=== PATIENT | female | born 1975 | race Caucasian/White ===

== ENCOUNTER 2016-09-07 20:57 | Emergency (ER) | payer OTHER ==
[~2016-09-07] VITALS: Ht 154.9 cm; Wt 99.0 kg
[2016-09-07] MEDS ORDERED: IPRATROPIUM/ALBUTEROL 0.5-3(2.5)MG/3ML NEB HHN ONE (22:15)
[2016-09-07] MEDS ORDERED: PREDNISONE 20MG TABLET PO SCH (22:15)
[2016-09-07 22:30] VITALS: BP 126/75
== END 2016-09-07 23:15 | disposition home or self-care (01) ==
LOC: ER 20:57
DX: J45.901 Unspecified asthma with (acute) exacerbation (principal)
CPT/HCPCS: 81025; 94640; 99283; J7512; J7620

== ENCOUNTER 2017-03-14 02:09 | Emergency (ER) | payer MEDICAID, OTHER ==
[~2017-03-14] VITALS: Ht 154.9 cm; Wt 73.0 kg
[2017-03-14] MEDS ORDERED: METHYLPREDNISOLONE SOD SUCC 125 MG/2 ML VIAL IV STA (03:07)
[2017-03-14] MEDS ORDERED: IPRATROPIUM BROMIDE (0.02%) 0.5MG/2.5ML NEB HHN STA (03:07)
[2017-03-14] MEDS ORDERED: MAGNESIUM 2 G PREMIX 50 ML IV STA (03:07)
[2017-03-14] MEDS ORDERED: ALBUTEROL (0.083%) 2.5MG/3ML NEB HHN STA (03:07)
[2017-03-14] MEDS ORDERED: SODIUM CHLORIDE 0.9% 1,000 ML IV ONE (03:07)
[2017-03-14] MEDS ORDERED: CEFTRIAXONE 1 G PREMIX 50 ML IV ONE (03:15)
[2017-03-14] MEDS ORDERED: AZITHROMYCIN 500 MG in DEXT 5% WATER 250 ML IV ONE (03:15)
[2017-03-14 07:06] VITALS: BP 129/79
== END 2017-03-14 07:08 | disposition home or self-care (01) ==
LOC: ER 02:09
DX: J45.901 Unspecified asthma with (acute) exacerbation (principal); Z98.890 Other specified postprocedural states
CPT/HCPCS: 71010; 81025; 94640; 96365; 96367; 96375; 99285; J0456; J0696; J2930; J3475; J7030; J7611; Z7610; J7060

== ENCOUNTER 2017-07-06 05:31 | Emergency (ER) | payer OTHER ==
[~2017-07-06] VITALS: Ht 157.5 cm; Wt 82.0 kg
[2017-07-06 05:38] VITALS: BP 128/89
== END 2017-07-06 09:37 | disposition left against medical advice (07) ==
LOC: ER 05:31
DX: R06.02 Shortness of breath (principal); Z53.21 Procedure and treatment not carried out due to patient leaving prior to being seen by health care provider

== ENCOUNTER 2017-07-18 02:53 | Emergency (ER) | payer OTHER ==
[~2017-07-18] VITALS: Ht 154.9 cm; Wt 82.0 kg
[2017-07-18 03:40] VITALS: BP 147/100
[2017-07-18] MEDS ORDERED: IPRATROPIUM BROMIDE (0.02%) 0.5MG/2.5ML NEB HHN STA (03:52)
[2017-07-18] MEDS ORDERED: ALBUTEROL (0.083%) 2.5MG/3ML NEB HHN STA (03:52)
[2017-07-18] MEDS ORDERED: SODIUM CHLORIDE 0.9% 1,000 ML IV ONE (03:52)
[2017-07-18] MEDS ORDERED: METHYLPREDNISOLONE SOD SUCC 125 MG/2 ML VIAL IV STA (03:52)
[2017-07-18] MEDS ORDERED: AZITHROMYCIN 500 MG in DEXT 5% WATER 250 ML IV ONE (04:00)
[2017-07-18] MEDS ORDERED: NITROGLYCERIN OINT 1GM/INCH UDPKT TD ONE (04:00)
[2017-07-18] MEDS ORDERED: ASPIRIN 81MG TABLET PO ONE (04:00)
[2017-07-18] MEDS ORDERED: CEFTRIAXONE 1 G PREMIX 50 ML IV ONE (04:00)
[2017-07-18] MEDS ORDERED: MAGNESIUM 2 G PREMIX 50 ML IV ONE (04:00)
[2017-07-18 04:32] LABS: BG BASE EXCESS 1.7 mmol/L (-2.0-2.0); BG CARBOXYHEMOGLOBIN 0.1 % (0.5-1.5); BG DEOXYHEMOGLOBIN 2.5 % (0.0-5.0); BG FRACTION INSPIRED OXYGEN 21; BG HCO3 ACT 25.8 mmol/L (22.0-26.0); BG METHEMOGLOBIN 0.2 % (0.0-1.5); BG OXYGEN SATURATION 97.5 % (92.0-98.5); BG OXYHEMOGLOBIN 97.2 % (94.0-97.0); BG PCO2 38.6 mmHg (35.0-45.0); BG PH 7.443 (7.350-7.450); BG PO2 99.3 mmHg (75.0-100.0); BG SAMPLE SITE LEFT RADIAL; BG TOTAL HEMOGLOBIN 10.4 g/dL (12.0-18.0); BG VENT MODE ROOM AIR
[2017-07-18 05:15] LABS: HEMATOCRIT. 31.4 % (36.0-48.0); HEMOGLOBIN. 9.6 g/dL (12.0-16.0); MEAN CORPUSCULAR HEMOGLOBIN 21.5 pg (28.0-32.0); MEAN CORPUSCULAR VOLUME 69.9 fL (81.0-99.0); MEAN PLATELET VOLUME 6.7 fl (7.4-10.4); PLATELET 372 x1000/uL (130-400); RED BLOOD CELL COUNT 4.48 mill/uL (4.2-5.4); RED CELL DISTRIBUTION WIDTH 19.9 % (11.6-14.6)
[2017-07-18 05:21] LABS: INR 0.9; PROTHROMBIN TIME 9.6 sec (9.4-11.6)
[2017-07-18 05:31] LABS: CARBON DIOXIDE 26 mEq/L (21-32); CHLORIDE 104 mEq/L (98-107); ETHANOL BLOOD < 10 mg/dL; TROPONIN I < 0.02 ng/mL (0.00-0.04)
[2017-07-18 10:55] LABS: PLATELET ESTIMATE NORMAL
== END 2017-07-18 05:19 | disposition home or self-care (01) ==
LOC: ER 03:06
DX: J45.901 Unspecified asthma with (acute) exacerbation (principal); Z87.891 Personal history of nicotine dependence
CPT/HCPCS: 36415; 36600; 71045; 80053; 82375; 82805; 83605; 83690; 83880; 84484; 85025; 85610; 87040; 93005; 94640; 96365; 96375; 99285; G0482; J0456; J0696; J2930; J3475; J7030; J7611; Z7610; J7060

== ENCOUNTER 2018-11-13 05:40 | Emergency (ER) | payer OTHER ==
[~2018-11-13] VITALS: Ht 157.5 cm; Wt 73.0 kg
[2018-11-13] MEDS ORDERED: ALBUTEROL (0.083%) 2.5MG/3ML NEB HHN STA (09:06)
[2018-11-13] MEDS ORDERED: IPRATROPIUM BROMIDE (0.02%) 0.5MG/2.5ML NEB HHN STA (09:06)
[2018-11-13] MEDS ORDERED: PREDNISONE 20MG TABLET PO STA (09:06)
[2018-11-13 09:24] LABS: BASOPHILS % 0.9 % (0.0-2.0); EOSINOPHILS % 8.9 % (0.0-5.0); HEMATOCRIT. 30.1 % (36.0-48.0); HEMOGLOBIN. 9.5 g/dL (12.0-16.0); LYMPHOCYTES % 27.2 % (20.0-50.0); MEAN CORPUSCULAR HEMOGLOBIN 22.6 pg (28.0-32.0); MEAN CORPUSCULAR VOLUME 71.4 fL (81.0-99.0); MEAN PLATELET VOLUME 6.8 fl (7.4-10.4); MONOCYTES % 6.9 % (2.0-8.0); NEUTROPHILS % 56.1 % (40.0-76.0); PLATELET 313 x1000/uL (130-400); RED BLOOD CELL COUNT 4.22 mill/uL (4.2-5.4); RED CELL DISTRIBUTION WIDTH 17.7 % (11.6-14.6)
[2018-11-13 09:29] LABS: CHLORIDE 108 mEq/L (98-107)
[2018-11-13 09:34] LABS: *BARBITURATES SCREEN URINE NEGATIVE (NEGATIVE); *BENZODIAZEPINES SCREEN URINE NEGATIVE (NEGATIVE); *COCAINE SCREEN URINE NEGATIVE (NEGATIVE)
[2018-11-13 09:35] LABS: METHADONE URINE SCREEN NEGATIVE (NEGATIVE); OPIATES URINE SCREEN NEGATIVE (NEGATIVE)
[2018-11-13 09:37] LABS: CANNABINOID URINE SCREEN NEGATIVE (NEGATIVE)
[2018-11-13 09:38] LABS: HCG SCREEN NEGATIVE
[2018-11-13 09:39] LABS: PHENCYCLIDINE URINE SCREEN NEGATIVE (NEGATIVE)
[2018-11-13 09:42] LABS: *AMPHETAMINES SCREEN URINE PRESUMTIVE POSITIVE (NEGATIVE)
[2018-11-13 10:24] VITALS: BP 171/94
== END 2018-11-13 10:30 | disposition home or self-care (01) ==
LOC: ER 05:40
DX: J45.901 Unspecified asthma with (acute) exacerbation (principal); F15.10 Other stimulant abuse, uncomplicated; D50.9 Iron deficiency anemia, unspecified; R03.0 Elevated blood-pressure reading, without diagnosis of hypertension; F12.11 Cannabis abuse, in remission; Z87.891 Personal history of nicotine dependence
CPT/HCPCS: 36415; 71045; 80048; 80305; 81025; 83880; 84484; 84703; 85025; 85379; 93005; 94640; 99284; J7512; J7611

== ENCOUNTER 2019-01-18 09:07 | Emergency (ER) | payer OTHER ==
[~2019-01-18] VITALS: Ht 154.9 cm; Wt 74.0 kg
[2019-01-18] MEDS ORDERED: ALBU90AE IH (09:19)
[2019-01-18] MEDS ORDERED: IPRATROPIUM BROMIDE (0.02%) 0.5MG/2.5ML NEB HHN STA (09:22)
[2019-01-18] MEDS ORDERED: ALBUTEROL (0.083%) 2.5MG/3ML NEB HHN STA (09:22)
[2019-01-18] MEDS ORDERED: PREDNISONE 20MG TABLET PO STA (09:22)
[2019-01-18 10:54] VITALS: BP 142/90
== END 2019-01-18 10:55 | disposition home or self-care (01) ==
LOC: ER 09:07
DX: J45.901 Unspecified asthma with (acute) exacerbation (principal); F12.10 Cannabis abuse, uncomplicated; Z87.891 Personal history of nicotine dependence; Z98.890 Other specified postprocedural states
CPT/HCPCS: 94644; 99285; J7512; J7611; Z7610; 94640

== ENCOUNTER 2022-11-24 23:40 | Emergency (ER) | payer MEDICAID, OTHER ==
[~2022-11-24] VITALS: Ht 154.9 cm; Wt 78.6 kg
[~2022-11-24 23:40] MED LIST: ALBU90AE IH
[2022-11-25 00:57] LABS: BASOPHILS % 0.8 % (0.0-2.0); EOSINOPHILS % 5.5 % (0.0-5.0); HEMATOCRIT. 37.4 % (36.0-48.0); HEMOGLOBIN. 12.5 g/dL (12.0-16.0); LYMPHOCYTES % 39.1 % (20.0-50.0); MEAN CORPUSCULAR HEMOGLOBIN 28.4 pg (28.0-32.0); MEAN CORPUSCULAR VOLUME 85.4 fL (81.0-99.0); MEAN PLATELET VOLUME 7.2 fl (7.4-10.4); MONOCYTES % 5.1 % (2.0-8.0); NEUTROPHILS % 49.5 % (40.0-76.0); PLATELET 329 x1000/uL (130-400); RED BLOOD CELL COUNT 4.38 mill/uL (4.2-5.4); RED CELL DISTRIBUTION WIDTH 14.3 % (11.6-14.6)
[2022-11-25 00:58] LABS: CHLORIDE 108 mEq/L (98-107)
[2022-11-25 01:01] LABS: HCG SCREEN NEGATIVE
[2022-11-25 03:45] VITALS: BP 111/75
== END 2022-11-25 04:52 | disposition home or self-care (01) ==
LOC: ER 23:40
DX: R00.2 Palpitations (principal); R06.02 Shortness of breath; J45.909 Unspecified asthma, uncomplicated; F12.90 Cannabis use, unspecified, uncomplicated
CPT/HCPCS: 36415; 71045; 80053; 83880; 84484; 84703; 85025; 85379; 93005; 99285

== ENCOUNTER 2023-03-02 09:55 | Emergency (ER) | payer MEDICAID, OTHER ==
[~2023-03-02] VITALS: Ht 154.9 cm; Wt 72.6 kg
[2023-03-02 10:21] VITALS: O2SAT 99
[2023-03-02] MEDS ORDERED: METOCLOPRAMIDE HCL 10MG TABLET PO NR (11:00)
[2023-03-02] MEDS ORDERED: KETOROLAC 15MG/ML VIAL IV NR (11:00)
[2023-03-02] MEDS ORDERED: KETOROLAC 15MG/ML VIAL IM NR (11:30)
[2023-03-02] MEDS ORDERED: IBUP-2028 PO (11:55)
[2023-03-02] MEDS ORDERED: METO-293 PO (11:55)
[2023-03-02 12:42] VITALS: BP 132/84; PULSE 74; RESP 18; TEMP 98.2
== END 2023-03-02 12:43 | disposition home or self-care (01) ==
LOC: ER 10:25
DX: S00.83XA Contusion of other part of head, initial encounter (principal); F07.81 Postconcussional syndrome; W50.0XXA Accidental hit or strike by another person, initial encounter; Y93.89 Activity, other specified; Y92.89 Other specified places as the place of occurrence of the external cause; Y99.8 Other external cause status
CPT/HCPCS: 70450; 96372; 99285; J8597; J1885; Z7610

== ENCOUNTER 2024-02-08 13:21 | Emergency (ER) | payer MEDICAID, OTHER ==
[~2024-02-08] VITALS: Ht 154.9 cm; Wt 79.0 kg
[~2024-02-08 13:21] MED LIST changes: +IBUP-2028 PO; +METO-293 PO
[2024-02-08 13:45] VITALS: O2SAT 100
[2024-02-08 15:07] VITALS: BP 123/87; PULSE 84; RESP 20; TEMP 98.2
== END 2024-02-08 15:11 | disposition home or self-care (01) ==
LOC: ER 13:33
DX: L02.211 Cutaneous abscess of abdominal wall (principal); J45.909 Unspecified asthma, uncomplicated; F12.10 Cannabis abuse, uncomplicated; Z98.890 Other specified postprocedural states
CPT/HCPCS: 10060; 99284; Z7610 ×4

== ENCOUNTER 2024-02-10 13:36 | Emergency (ER) | payer MEDICAID, OTHER ==
[~2024-02-10] VITALS: Ht 154.9 cm; Wt 78.9 kg
[2024-02-10 13:40] VITALS: O2SAT 95
[2024-02-10 14:04] VITALS: BP 133/81; PULSE 88; RESP 18; TEMP 98.6; O2SAT 95
== END 2024-02-10 15:09 | disposition home or self-care (01) ==
LOC: ER 13:36
DX: L02.211 Cutaneous abscess of abdominal wall (principal); F12.10 Cannabis abuse, uncomplicated; J45.909 Unspecified asthma, uncomplicated; Z48.00 Encounter for change or removal of nonsurgical wound dressing; Z98.890 Other specified postprocedural states
CPT/HCPCS: 99281

== ENCOUNTER 2024-05-09 19:21 | Emergency (ER) | payer OTHER ==
[~2024-05-09] VITALS: Ht 154.9 cm; Wt 77.1 kg
[2024-05-09 21:24] LABS: BASOPHILS % 0.2 % (0.0-2.0); HEMATOCRIT. 40.6 % (36.0-48.0); HEMOGLOBIN. 12.7 g/dL (12.0-16.0); LYMPHOCYTES % 10.3 % (20.0-50.0); MEAN CORPUSCULAR HEMOGLOBIN 27.7 pg (28.0-32.0); MEAN CORPUSCULAR HGB CONC 31.4 g/dL (31.0-37.0); MEAN CORPUSCULAR VOLUME 88.4 fL (81.0-99.0); MEAN PLATELET VOLUME 7.3 fl (7.4-10.4); NEUTROPHILS % 83.5 % (40.0-76.0); PLATELET 249 x1000/uL (130-400); RED BLOOD CELL COUNT 4.59 mill/uL (4.2-5.4); RED CELL DISTRIBUTION WIDTH 14.4 % (11.6-14.6); WHITE BLOOD COUNT 9.8 x1000/uL (4.5-11.0)
[2024-05-09 21:29] LABS: CHLORIDE 108 mEq/L (98-107); POTASSIUM 3.7 mEq/L (3.5-5.1); SODIUM 139 mEq/L (136-145)
[2024-05-09 21:30] LABS: CALCIUM 9.2 mg/dL (8.7-10.4); CARBON DIOXIDE 24 mEq/L (21-32)
[2024-05-09 21:35] LABS: CREATININE 0.6 mg/dL (0.6-1.0); GLUCOSE 140 mg/dL (70-105); UREA NITROGEN BLOOD 14 mg/dL (9-23)
[2024-05-09 21:36] LABS: TROPONIN I HIGH SENSITIVITY 5 ng/L (3.0-34)
[2024-05-09] MEDS: ALBUTEROL (0.083%) 2.5MG/3ML NEB HHN SCH (21:40)
[2024-05-09] MEDS: IPRATROPIUM BROMIDE (0.02%) 0.5MG/2.5ML NEB HHN STA (21:41)
[2024-05-09] MEDS: DEXAMETHASONE 4MG TABLET PO ONE (21:51)
[2024-05-09 21:52] VITALS: PULSE 84; RESP 20; O2SAT 96
[2024-05-10] MEDS ORDERED: P50 MT (00:09)
[2024-05-10] MEDS ORDERED: AZIT250T12 MT (00:09)
[2024-05-10 00:25] VITALS: BP 143/83; PULSE 80; RESP 16; TEMP 36.78072; O2SAT 96
[2024-05-10 01:05] LABS: TROPONIN I HIGH SENSITIVITY < 4 ng/L (3.0-34)
== END 2024-05-10 00:28 | disposition home or self-care (01) ==
LOC: ER 19:21
DX: J45.901 Unspecified asthma with (acute) exacerbation (principal); J06.9 Acute upper respiratory infection, unspecified; F12.90 Cannabis use, unspecified, uncomplicated; Z98.890 Other specified postprocedural states
CPT/HCPCS: 80048; 85025; 84484; 36415; 71045; 94640; 93005; 99285; J8540; Z7610 ×3

== ENCOUNTER 2025-04-13 19:06 | Emergency (ER) | payer OTHER ==
[~2025-04-13] VITALS: Ht 154.9 cm; Wt 78.0 kg
[~2025-04-13 19:06] MED LIST changes: +AZIT250T12 MT; +P50 MT
[2025-04-13 19:07] VITALS: O2SAT 96
[2025-04-13 19:25] VITALS: BP 181/101; PULSE 71; RESP 18; TEMP 36.8; O2SAT 97
[2025-04-13] MEDS: IPRATROPIUM/ALBUTEROL 0.5-3(2.5)MG/3ML NEB HHN ONE (21:30)
[2025-04-13 22:24] LABS: BASOPHILS % 1.1 % (0.0-2.0); EOSINOPHILS % 6.1 % (0.0-5.0); HEMATOCRIT. 40.4 % (36.0-48.0); HEMOGLOBIN. 13.3 g/dL (12.0-16.0); LYMPHOCYTES % 31.5 % (20.0-50.0); MEAN PLATELET VOLUME 7.5 fl (7.4-10.4); MONOCYTES % 5.6 % (2.0-8.0); NEUTROPHILS % 55.7 % (40.0-76.0); PLATELET 297 x1000/uL (130-400); RED BLOOD CELL COUNT 4.56 mill/uL (4.2-5.4); RED CELL DISTRIBUTION WIDTH 14.2 % (11.6-14.6)
[2025-04-13 22:38] LABS: CREATININE 0.6 mg/dL (0.6-1.0); UREA NITROGEN BLOOD 7 mg/dL (9-23)
[2025-04-13 22:39] LABS: TROPONIN I HIGH SENSITIVITY 7 ng/L (3.0-34)
[2025-04-13] MEDS ORDERED: PRED5TAB48 MT (22:40)
[2025-04-13 23:32] LABS: TROPONIN I HIGH SENSITIVITY 6 ng/L (3.0-34)
[2025-04-13] MEDS ORDERED: NAPR-1176 MT (23:35)
== END 2025-04-13 23:55 | disposition home or self-care (01) ==
LOC: ER 19:06
DX: J45.909 Unspecified asthma, uncomplicated (principal); I10 Essential (primary) hypertension; F12.90 Cannabis use, unspecified, uncomplicated; Z79.899 Other long term (current) drug therapy
CPT/HCPCS: 36415; 71045; 80048; 84484; 85025; 93005; 99285